=== PATIENT | female | born 1935 | race Caucasian/White ===

== ENCOUNTER 2016-07-12 21:27 | Inpatient (IN) | payer MEDICARE, OTHER ==
--- NOTE | 2016-07-12 21:18 | EDM.PDOC ---
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 she states she did not have chest pain , dyspnea or diaphoresis just felt weak. She states she was able to sit down and rest and associated the feeling with the heat and minimal po intake. She staes she came home from work and called her daughter to come and do the chores as she felt like she was too weak to do this. Daughter came over and indicated patient look guidry and insisted she go to ER for evaluation. She presents ambulatory for evaluation and treatment. Onset: Today Onset Date: 07/12/16 Onset Time: 16:30 Duration: Hour(s): (5), Recurring, Waxing/Waning Location: Reports: Generalized Quality: Reports: Other (Weakness fatigue-) Severity: Mild Improves with: Reports: Rest Worsens with: Reports: Movement Context: Reports: Activity, Exercise. Denies: Sick Contact, Trauma Associated Symptoms: Reports: Cough, cough w sputum, Weakness. Denies: Confusion, Chest Pain, Diaphoresis, Fever/Chills, Headaches, Loss of Appetite, Malaise, Nausea/Vomiting, Rash, Seizure, Shortness of Breath, Syncope Treatments DIRECTOR EHS: Reports: Other (see below) (rest) - Related Data Allergies Allergy/AdvReac Type Severity Reaction Status Date / Time No Known Allergies Allergy Verified 05/15/16 08:26 Home Meds: Home Meds Aspirin [Adult Low Dose Aspirin EC] 81 mg PO DAILY 05/15/16 [History] Denosumab [Prolia] 60 mg SUBCUT Q180D 05/15/16 [History] Hydrochlorothiazide/Lisinopril [Lisinopril/HCTZ 20-12.5 MG] 1 tab PO DAILY 05/15 [History] Multivitamin [Daily Multiple Vitamin] 1 tab PO DAILY 05/15/16 [History] Past Medical History HEENT History: Reports: Cataract, Impaired Vision Cardiovascular History: Reports: High Cholesterol, Hypertension Respiratory History: Reports: None Gastrointestinal History: Reports: None Genitourinary History: Reports: None : 8 Para: 7 LMP (Approximate): Other (See Below) (Gaguxtieidet-MICY-2 spontaneous miscarriage) Musculoskeletal History: Reports: None Neurological History: Reports: None Psychiatric History: Reports: None Endocrine/Metabolic History: Reports: None Hematologic History: Reports: None Immunologic History: Reports: None Oncologic (Cancer) History: Reports: None Dermatologic History: Reports: None - Infectious Disease History Infectious Disease History: Reports: None - Past Surgical History Head Surgeries/Procedures: Reports: None HEENT Surgical History: Reports: Cataract Surgery Cardiovascular Surgical History: Reports: None Respiratory Surgical History: Reports: None GI Surgical History: Reports: None Female Surgical History: Reports: Hysterectomy Male Surgical History: Reports: None Endocrine Surgical History: Reports: None Neurological Surgical History: Reports: None Musculoskeletal Surgical History: Reports: Other (See Below) (Fractured femur with ORIF) Oncologic Surgical History: Reports: None Dermatological Surgical History: Reports: None - Past Imaging History Past Imaging History: Reports: None Social & Family History - Family History Family Medical History: Noncontributory HEENT: Reports: None Cardiac: Reports: CAD Respiratory: Reports: None GI: Reports: None : Reports: None OBGYN: Reports: None Musculoskeletal: Reports: Osteoporosis Neurological: Reports: None Psychiatric: Reports: None Endocrine/Metabolic: Reports: None Hematologic: Reports: None Immunologic: Reports: None Dermatologic: Reports: None Oncologic: Reports: None - Tobacco Use Smoking Status *Q: Never Smoker Tobacco Use Within Last Twelve Months: No Second Hand Smoke Exposure: Yes - Tobacco Core Measures Tobacco Use/Smoking Within Last 30 Days: No - Caffeine Use Caffeine Use: Reports: Coffee (am only) - Alcohol Use Alcohol Use History: No - Recreational Drug Use Recreational Drug Use: No Drug Use in Last 12 Months: No - Sexual History Sexual History: Reports: None - Living Situation & Occupation Living situation: Reports: 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 Denies: Malaise, Night Sweats, Diaphoresis HEENT: Reports: No Symptoms Respiratory: Reports: Cough, Other (Since initiation of MARIANA for HTN) Cardiovascular: Reports: Blood Pressure Problem, Lightheadedness. Denies: Chest Pain, Claudication, Dyspnea on Exertion, Edema Endocrine: Reports: No Symptoms GI/Abdominal: Reports: No Symptoms : Reports: No Symptoms Musculoskeletal: Reports: No Symptoms Skin: Reports: No Symptoms, Pallor Neurological: Denies: Confusion, Headache, Tremors Psychiatric: Reports: No Symptoms Hematologic/Lymphatic: Reports: No Symptoms Immunologic: Reports: No Symptoms ED EXAM, GENERAL - Physical Exam Exam: See Below Exam Limited By: No Limitations General Appearance: Alert, WD/WN, No Apparent Distress, Other (Appears younger than stated age) Eye Exam: Bilateral Eye: EOMI (WNL), Normal Fundi, Normal Inspection, PERRL, Vision Changes (Wears glasses) Ears: Normal External Exam, Normal Canal, Hearing Grossly Normal, Normal TMs Ear Exam: Bilateral Ear: Auricle Normal, Canal Normal, TM normal Nose: Normal Inspection, Normal Mucosa, No Blood, Nasal Tenderness Throat/Mouth: Normal Inspection, Normal Lips, Normal Teeth, Normal Gums, Normal Oropharynx, Normal Voice, No Airway Compromise Head: Atraumatic, Normocephalic Neck: Normal Inspection, Supple, Non-Tender, Full Range of Motion. No: Carotid Bruit, Thyromegaly Respiratory/Chest: No Respiratory Distress, Lungs Clear, Normal Breath Sounds, No Accessory Muscle Use, Chest Non-Tender Cardiovascular: Normal Peripheral Pulses, Regular Rate, Rhythm, No Edema, No Gallop, No JVD, No Murmur, No Rub Peripheral Pulses: 2+: Carotid (L), Carotid (R), Brachial (L), Brachial (R), Radial (L), Radial (R), Dorsalis Pedis (L), Dorsalis Pedis (R) GI/Abdominal: Normal Bowel Sounds, Soft, Non-Tender, No Distention (Female) Exam: Deferred Rectal (Female) Exam: Deferred Back Exam: Normal Inspection, Full Range of Motion Extremities: Normal Inspection, Normal Range of Motion, Non-Tender, No Pedal Edema, Normal Capillary Refill Neurological: Alert, Oriented, CN II-XII Intact, Normal Cognition, Normal Gait, Normal Reflexes, No Motor/Sensory Deficits Psychiatric: Normal Affect, Normal Mood Skin Exam: Warm, Dry, Intact, Normal Color, No Rash Lymphatic: No Adenopathy ED CARDIOLOGY PROCEDURES - Endotracheal Intubation Pre-oxygenation: assisted with BVM, 100% FiO2 Confirmed By: CO2 indicator, bilateral breath sounds EKG INTERPRETATION EKG Date: 07/12/16 Time: 21:45 Rhythm: a-fib Belva: normal P-wave: present QRS: normal ST-T: normal QT: normal Comparison: other: (Spontaneous conversion to NSR 20 minutes after arrival to ED and post ECG) Course - Vital Signs Last Recorded V/S: Last Vital Signs Temp 35.2 C L 07/12/16 21:30 Pulse 103 H 07/12/16 21:54 Resp 16 07/12/16 21:54 BP 107/78 07/12/16 21:54 Pulse Ox 96 07/12/16 21:54 - Orders/Labs/Meds Orders: Active Orders 24 hr Category Date Time Status Chest 2V [CR] Stat Exams 07/12/16 21:13 Taken Medication Orders Carvedilol (Coreg) 3.125 mg PO BIDM [facility] Enoxaparin Sodium (Lovenox) 80 mg SUBCUT Q12H [facility] Multivitamins/Minerals/Vitamin C (Tab-A-Allyssa) 1 tab PO DAILY [facility] Warfarin Sodium (Coumadin) 5 mg PO DAILY@1200 [facility] Labs: Laboratory Tests 07/12/16 07/12/16 07/12/16 Range/Units 21:13 21:13 21:13 WBC 8.6 (5.0-10.0) 10^3/uL RBC 4.62 (4.00-5.50) 10^6/uL Hgb 14.1 (12.0-16.0) g/dL Hct 41.4 (37.0-47.0) % MCV 89.6 (82.0-94.0) fL MCH 30.5 (27.0-32.0) pg MCHC 34.1 (33.0-38.0) g/dL RDW Coeff of Eugenia 13.3 (11.0-15.0) % Plt Count 288 (150-400) 10^3/uL Neut % (Auto) 55.7 (35-85) % Lymph % (Auto) 33.1 (10-55) % [place] % (Auto) 9.3 (0-16) % Eos % (Auto) 1.6 (0-5) % Baso % (Auto) 0.3 (0-3) % Neut # (Auto) 4.80 (1.80-7.00) 10^3/uL Lymph # (Auto) 2.85 (1.00-4.80) 10^3/uL [place] # (Auto) 0.80 (0.00-0.80) 10^3/uL Eos # (Auto) 0.14 (0.00-0.45) 10^3/uL Baso # (Auto) 0.03 10^3/uL PT 10.8 (9.7-12.3) SEC INR 1.00 (0.92-1.18) APTT 28.0 (20.0-45.0) SEC Sodium 141 (136-145) mEq/L Potassium 4.4 (3.5-5.0) mEq/L Chloride 104 (98-106) mEq/L Carbon Dioxide 24 (21-32) mmol/L BUN 21 H (7-18) mg/dL Creatinine 1.1 H (0.6-1.0) mg/dL Est Cr Clr Drug Dosing 30.27 mL/min Estimated GFR (MDRD) 48 L (>=60) mL/min Glucose 116 H D (75-99) mg/dL Calcium 9.3 (8.4-10.1) mg/dL Magnesium 2.2 (1.8-2.4) mg/dL Lactate Dehydrogenase 225 H (100-190) U/L Creatine Kinase 195 (21-215) U/L Troponin I < 0.017 (0.00-0.06) ng/mL Meds: Medications Generic Name Dose Route Start Last Admin Trade Name Freq PRN Reason Stop Dose Admin Carvedilol 3.125 mg 07/12/16 22:45 Coreg PO BIDM [facility] Enoxaparin Sodium 80 mg 07/12/16 22:45 Lovenox SUBCUT Q12H [facility] Multivitamins/Minerals/Vitamin C 1 tab 07/13/16 08:00 Tab-A-Allyssa PO DAILY [facility] Warfarin Sodium 5 mg 07/13/16 12:00 Coumadin PO DAILY@1200 [facility] Discontinued Medications Generic Name Dose Route Start Last Admin Trade Name Freq PRN Reason Stop Dose Admin Aspirin 324 mg 07/12/16 21:14 07/12/16 21:41 Aspirin PO 07/12/16 21:15 243 mg ONETIME ONE Administration - Radiology Interpretation Free Text/Narrative:: 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 Departure - Departure Time of Disposition: 22:00 Disposition: Admitted As Inpatient 65 Condition: good Clinical Impression: Atrial fibrillation, Cough due to MARIANA inhibitor, HTN (hypertension) MLP Sign Off - Signature Requirements MLP Sign Off: No - Problem List & Annotations (1) Atrial fibrillation SNOMED Code(s): 84381136 Code(s): I48.91 - UNSPECIFIED ATRIAL FIBRILLATION Status: Acute Current Visit: Yes (2) HTN (hypertension) SNOMED Code(s): 33286508 Code(s): I10 - ESSENTIAL (PRIMARY) HYPERTENSION Status: Acute Current Visit: Yes (3) Cough due to MARIANA inhibitor SNOMED Code(s): 210709691 Code(s): R05 - COUGH; T46.4X5A - ADVERSE EFFECT OF [id number] INHIBITORS, INIT Status: Acute Current Visit: Yes - Problem List Review Problem List Initiated/Reviewed/Updated: Yes - My Orders Last 24 Hours: My Active Orders 07/12/16 21:13 Chest 2V [CR] Stat - Assessment/Plan Admission H&P: Please use this note as an admission H&P Last 24 Hours: My Active Orders 07/12/16 21:13 Chest 2V [CR] Stat Assessment:: New onset atrial fibrillation with spontaneous conversion to NSR in ER. HTN Cough secondary to MARIANA Osteoporosis Plan: Admit to hospital for observation. Discontinue MARIANA Coreg 3.25 mg BID Lovenox 1 mg/kg subcutaneous every 12 hours. Coumadin 10 mg daily PT INR daily Referral to Cardiology for consultation.
[~2016-07-12 21:27] MED LIST: Aspirin 81 MG Tab.Chew PO ONE
[2016-07-12 21:47] LABS: CHLORIDE,CL 104 mEq/L (98-106); SODIUM,NA 141 mEq/L (136-145)
[2016-07-12] MEDS: Carvedilol 3.125 MG Tab PO SCH (23:23)
[2016-07-12] MEDS: Enoxaparin 80 MG/0.8 ML Syringe SUBCUT SCH (23:24)
[2016-07-13] MEDS: Warfarin 5 MG Tab PO SCH ×2 (01:00→12:10)
[2016-07-13] MEDS: Multivitamin Tab PO SCH (08:30)
[2016-07-13] MEDS ORDERED: Pneumococcal Polyvalent-23 Vaccine 0.5 ML SDV IM ONE (08:41)
--- NOTE | 2016-07-13 09:40 | PCM.PN ---
[id number] for new onset Atrial Fibrillation. 07/13/2016- Functional Status: Reports: tolerating diet, ambulating, urinating. Denies: new symptoms Pain Score: 0 - Review of Systems General: Reports: No Symptoms, Fatigue. Denies: Weakness HEENT: Reports: no symptoms Pulmonary: Reports: no symptoms. Denies: shortness of breath, pleuritic chest pain Cardiovascular: Denies: Chest Pain, Palpitations, Dyspnea on Exertion, Orthopnea , PND, Edema, Lightheadedness Gastrointestinal: Reports: No symptoms. Denies: Abdominal pain Genitourinary: Reports: urgency, other (Waxing and waning past 3 weeks). Denies : dysuria, burning, pain, flank pain Musculoskeletal: Reports: no symptoms Skin: Reports: no symptoms Neurological: Reports: No Symptoms Psychiatric: Reports: no symptoms - Patient Data Vitals - most recent: Last Vital Signs Temp 36.3 C 07/13/16 07:43 Pulse 56 L 07/13/16 07:43 Resp 16 07/13/16 07:43 BP 109/67 07/13/16 07:43 Pulse Ox 95 07/13/16 07:43 Weight - most recent: 75.886 kg I&O - last 24 hours: Intake & Output 07/12/16 07/13/16 07/13/16 22:59 06:59 14:59 Intake Total 380 Balance 380 Lab Results last 24 hrs: Laboratory Results - last 24 hr 07/13/16 07/13/16 Range/Units 05:18 08:24 PT 11.2 (9.7-12.3) SEC INR 1.04 (0.92-1.18) Urine Color Yellow (YELLOW) Urine Appearance Clear (CLEAR) Urine pH 5.5 (4.5-8.0) Ur Specific [place] 1.012 (1.003-1.020) Urine Protein Negative (NEGATIVE) mg/dL Urine Glucose (UA) Negative (NEGATIVE) mg/dL Urine Ketones Negative (NEGATIVE) mg/dL Urine Occult Blood Negative (NEGATIVE) Urine Nitrite Positive H (NEGATIVE) Urine Bilirubin Negative (NEGATIVE) Urine Urobilinogen 0.2 (0.2-1.0) EU/dL Ur Leukocyte Esterase Small H (NEGATIVE) Urine RBC Not seen (0-5) /HPF Urine WBC 5-10 H (0-5) /HPF Urine Bacteria Many H (NOT SEEN) /HPF Med Orders - Current: Current Medications Carvedilol (Coreg) 3.125 mg PO BIDM [facility] Last Admin: 07/12/16 23:23 Dose: 3.125 mg Enoxaparin Sodium (Lovenox) 80 mg SUBCUT Q12H [facility] Last Admin: 07/12/16 23:24 Dose: 80 mg Multivitamins/Minerals/Vitamin C (Tab-A-Allyssa) 1 tab PO DAILY [facility] Last Admin: 07/13/16 08:30 Dose: 1 tab Trimethoprim/Sulfamethoxazole (Septra Ds) 1 tab PO BID [facility] Warfarin Sodium (Coumadin) 5 mg PO DAILY@1200 [facility] Last Admin: 07/13/16 01:00 Dose: 5 mg Discontinued Medications Aspirin (Aspirin) 324 mg PO ONETIME ONE Stop: 07/12/16 21:15 Last Admin: 07/12/16 21:41 Dose: 243 mg Pneumococcal Polyvalent Vaccine (Pneumovax 23) 0.5 ml IM .ONCE ONE Stop: 07/13/16 08:42 Warfarin Sodium (Coumadin) 5 mg PO DAILY@1200 [facility] - Exam Quality Assessment: DVT prophylaxis General: alert, oriented, cooperative, no acute distress HEENT: Pupils equal, Pupils reactive, Mucous membr. moist/pink Neck: supple, trachea midline, no JVD, no thyromegaly Lungs: Clear to auscultation, Normal respiratory effort Cardiovascular: Regular Rate, Regular Rhythm, Other (Telemetry Continues) Abdomen: bowel sounds present, soft, no tenderness, no distension (Female) Exam: Deferred Back Exam: Normal Inspection, Full Range of Motion Extremities: no edema, normal pulses, no tenderness/swelling, no calf tenderness Peripheral Pulses: 2+: Carotid (L), Carotid (R), Brachial (L), Brachial (R), Radial (L), Radial (R), Dorsalis Pedis (L), Dorsalis Pedis (R) Skin: warm, dry, intact, cool Wound/Incisions: dressing dry and intact (IV hep lock right dorsal hand) Neurological: no new focal deficit, normal gait, normal speech, normal tone, strength equal bilateral, reflexes equal bilateral, sensation intact, cranial nerves intact Psy/Mental Status: alert, normal affect, normal mood EKG INTERPRETATION Rhythm: NSR [place]: normal P-wave: present QRS: normal ST-T: normal QT: normal (Telemetry continues) Comparison: change from previous EKG (Normal Sinus rate 74) - Problem List & Annotations (1) Atrial fibrillation SNOMED Code(s): 82261764 Code(s): I48.91 - UNSPECIFIED ATRIAL FIBRILLATION Status: Acute Current Visit: Yes (2) HTN (hypertension) SNOMED Code(s): 14520393 Code(s): I10 - ESSENTIAL (PRIMARY) HYPERTENSION Status: Acute Current Visit: Yes (3) Cough due to MARIANA inhibitor SNOMED Code(s): 154522448 Code(s): R05 - COUGH; T46.4X5A - ADVERSE EFFECT OF [id number] INHIBITORS, INIT Status: Acute Current Visit: Yes - Problem List Review Problem List Initiated/Reviewed/Updated: Yes - My Orders Last 24 Hours: My Active Orders 07/12/16 22:20 Cardiac Monitoring [RC] 0800,199907/12/16 22:39 Patient Status [ADT] Routine Oxygen Therapy [RC] .PRN Vital Signs [RC] 0000,0400,0800,1200,1600,1999 Resuscitation Status Routine 07/12/16 22:45 Carvedilol [Coreg] 3.125 mg PO BIDM Enoxaparin [Lovenox] 80 mg SUBCUT Q12H 07/12/16 23:33 Warfarin [Coumadin] 5 mg PO DAILY@1200 07/13/16 08:00 Multivitamins [Tab-A-Allyssa] 1 tab PO DAILY 07/13/16 08:07 CULTURE URINE [RM] Routine 07/13/16 09:45 Sulfamethoxazole/Trimethoprim [Septra DS] 1 tab PO BID 07/13/16 Breakfast Regular Diet [DIET] - Assessment Assessment:: New Onset Atrial Fibrillation Anticoagulation Therapy UTI HTN - Plan Plan:: Continue current treatment plan. Close monitoring. Add Septra DS BID for UTI C and S ua.
[2016-07-13] MEDS: Carvedilol 3.125 MG Tab PO SCH ×2 (09:42→17:45)
[2016-07-13] MEDS: Sulfamethoxazole/Trimethoprim 800-160 MG Tab PO SCH ×2 (10:19→19:34)
[2016-07-13] MEDS: Enoxaparin 80 MG/0.8 ML Syringe SUBCUT SCH ×2 (10:19→22:13)
[2016-07-13] MEDS ORDERED: Warfarin 5 MG Tab PO SCH (12:00)
[2016-07-14] MEDS: Multivitamin Tab PO SCH (08:20)
[2016-07-14] MEDS: Sulfamethoxazole/Trimethoprim 800-160 MG Tab PO SCH (08:21)
[2016-07-14] MEDS: Carvedilol 3.125 MG Tab PO SCH ×2 (08:21→16:50)
[2016-07-14] MEDS: Warfarin 5 MG Tab PO SCH (11:12)
[2016-07-14] MEDS: Enoxaparin 80 MG/0.8 ML Syringe SUBCUT SCH ×2 (11:12→21:51)
[2016-07-14] MEDS: cefTRIAXone 1 GM Vial IVPUSH SCH (14:00)
[2016-07-15] MEDS: Multivitamin Tab PO SCH (07:42)
[2016-07-15] MEDS: Carvedilol 3.125 MG Tab PO SCH (07:42)
--- NOTE | 2016-07-15 08:07 | PN ---
DATE: 07/14/2016 S: Mrs. Kapadia is seen for followup. She was admitted with new onset atrial fibrillation. She converted quite quickly in the emergency room. She has been on low-dose Coreg and anticoagulated with Lovenox, and Coumadin has been started. She also has UTI. She feels fine. She denies any cardiopulmonary complaints. O: GENERAL: She is pleasant, alert, and cooperative. VITAL SIGNS: BP 135/92, heart rate in the 60s and sinus. HEENT: Grossly benign. NECK: Veins are nondistended. LUNGS: Sounds appear clear without any signs of failure. CARDIAC: Tones are regular without murmur, gallop, or rub. ABDOMEN: Soft. She has no peripheral edema. ASSESSMENT: PAROXYSMAL ATRIAL FIBRILLATION. P: We will get an echo ordered. I am going to stop the Bactrim as its interaction with Coumadin is quite high. I will put her on Rocephin while she is here. Hopefully home tomorrow. We will get a OPAL score calculated on her and ultimately, cardiology followup in the near future. OZZIE/CHUY /[id number]
[2016-07-15] MEDS: Enoxaparin 80 MG/0.8 ML Syringe SUBCUT SCH (10:56)
[2016-07-15] MEDS: cefTRIAXone 1 GM Vial IVPUSH SCH (11:00)
[2016-07-15] MEDS: Warfarin 5 MG Tab PO SCH (12:03)
[2016-07-15 13:09] VITALS: BP 134/85
--- NOTE | 2016-07-16 11:40 | DISCH ---
ADMISSION DIAGNOSIS: New onset atrial fibrillation with rapid ventricular response. DISCHARGE DIAGNOSIS: 1. RAPID ATRIAL FIBRILLATION CONVERTED. 2. URINARY TRACT INFECTION. HISTORY: The patient is a very healthy 80-year-old female treated only for a history of hypertension. She came in with palpitations, was found to be in AFib, was slow down in the emergency room and actually converted by the time she was admitted. Charlee Alford, nurse-practitioner did start her on anticoagulation with Lovenox and started oral anticoagulation as well. She has put on a beta ian. HOSPITAL COURSE: The patient did well while here. She never had any vital sign irregularities. She has been on telemetry the whole time. Has had no chest pain or shortness of breath, or returned to AFib. Started on low dose of Coreg and she is tolerating that well. She has been initiated on Coumadin, her INR still slightly subtherapeutic with INR now of 1.55. She did have a UTI on admit and grew out E. coli. She will go home on Ceftin for that. The patient's OPAL score puts her at approximately a 5% risk per year, which is moderate to high and I did explain that to her. She is agreeable to stay on Coumadin at least until we get her outpatient followup with Cardiology. We will not send her home on Lovenox. Her INR is at 1.55; today we will recheck again this and I will see her in the clinic as an outpatient next week. For now, she will be taken out of Coreg and I am going to put her on once a day Toprol 50 mg a day. With her Coumadin only other change for her admit will be to discontinuation of her lisinopril/hydrochlorothiazide for blood pressure control. COMPLICATIONS: During her stay were none. CONSULTATIONS: None. PROCEDURES: Echocardiogram, results pending. DISPOSITION: Discharged home. OZZIE/CHUY /[id number]
== END 2016-07-15 15:45 | disposition home or self-care (01) | DRG 309 ==
LOC: CC.ED 21:27 → CC.MS 21:57 → UNDOADMIN 21:57 → CC.MS 22:39
PROVIDERS: ADMIT Nurse Practitioner; ATTEND Family Medicine
DX: I48.91 Unspecified atrial fibrillation (principal); I48.0 Paroxysmal atrial fibrillation; N39.0 Urinary tract infection, site not specified; R05 Cough; T46.4X5A Adverse effect of angiotensin-converting-enzyme inhibitors, initial encounter; I10 Essential (primary) hypertension; E78.00 Pure hypercholesterolemia, unspecified; Z79.82 Long term (current) use of aspirin; Z79.899 Other long term (current) drug therapy; M81.0 Age-related osteoporosis without current pathological fracture; Z23 Encounter for immunization
CPT/HCPCS: 36415; 71020; 80048; 82550; 83615; 83735; 84484; 85025; 85610; 85730; 93005; 99285; A9270; 81001; 87086; 87088; 87186; 90732; 93010; 93306; G0009; J0696; J1650

== ENCOUNTER 2016-12-21 18:44 | Observation (INO) | payer MEDICARE, OTHER ==
[2016-12-21] MEDS ORDERED: Sodium Chloride 0.9% 10 ML Syringe FLUSH PRN (19:08)
--- NOTE | 2016-12-21 19:15 | EDM.PDOC ---
ED HPI GENERAL MEDICAL PROBLEM - General Chief Complaint: Chest Pain Stated Complaint: "Having chest heaviness" Time Seen by Provider: 12/21/16 18:45 Source of Information: Reports: Patient, Family, Old Records, RN - History of Present Illness INITIAL COMMENTS - FREE TEXT/NARRATIVE: Patient was at work when she started feeling "not quite right, its hard to describe". She describes some mild chest heaviness will diaphoresis but no nausea. She developed a sensation of heart pounding and palpitations. Was brought in to ER by family. States this feels similar to when she developed new onset a-fib last summer. It spontaneously converted at that time. She is on coumadin and has seen cardiology. Onset: Today Onset Date: 12/21/16 Onset Time: 17:00 Duration: Minutes:, Waxing/Waning Location: Reports: Chest Quality: Reports: Dull, Pressure Severity: Mild Improves with: Reports: None Worsens with: Reports: None Associated Symptoms: Reports: Diaphoresis, Other (dizziness with movement). Denies: Chest Pain, Cough, Fever/Chills, Headaches, Loss of Appetite, Malaise, Nausea/Vomiting, Shortness of Breath - Related Data Allergies Allergy/AdvReac Type Severity Reaction Status Date / Time No Known Allergies Allergy Verified 12/21/16 19:04 Home Meds: Home Meds Denosumab [Prolia] 60 mg SUBCUT Q180D 05/15/16 [History] Multivitamin [Daily Multiple Vitamin] 1 tab PO DAILY 05/15/16 [History] Metoprolol Succinate [Toprol XL] 50 mg PO DAILY #30 tab.er 07/15/16 [Rx] Warfarin [Coumadin] 5 mg PO ASDIRECTED 12/21/16 [History] Warfarin [Coumadin] 7.5 mg PO ASDIRECTED 12/21/16 [History] Past Medical History HEENT History: Reports: Cataract, 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, 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) Cardiovascular History: Reports: Afib, Blood Clots/VTE/DVT (in remote past had DVT), High Cholesterol, Hypertension, Other (See Below) (on coumadin for PAF) Respiratory History: Reports: None Gastrointestinal History: Reports: None Genitourinary History: Reports: None Musculoskeletal History: Reports: None Neurological History: Reports: None Psychiatric History: Reports: None Endocrine/Metabolic History: Reports: None Hematologic History: Reports: None Immunologic History: Reports: None Oncologic (Cancer) History: Reports: None Dermatologic History: Reports: None - Infectious Disease History Infectious Disease History: Reports: None - Past Surgical History Head Surgeries/Procedures: Reports: None HEENT Surgical History: Reports: Cataract Surgery Cardiovascular Surgical History: Reports: None Respiratory Surgical History: Reports: None GI Surgical History: Reports: None Female Surgical History: Reports: Hysterectomy Male Surgical History: Reports: None Endocrine Surgical History: Reports: None Neurological Surgical History: Reports: None Musculoskeletal Surgical History: Reports: Other (See Below) (Fractured femur with ORIF) Oncologic Surgical History: Reports: None Dermatological Surgical History: Reports: None - Past Imaging History Past Imaging History: Reports: None Social & Family History - Family History Family Medical History: Noncontributory HEENT: Reports: None Cardiac: Reports: CAD Respiratory: Reports: None GI: Reports: None : Reports: None OBGYN: Reports: None Musculoskeletal: Reports: Osteoporosis Neurological: Reports: None Psychiatric: Reports: None Endocrine/Metabolic: Reports: None Hematologic: Reports: None Immunologic: Reports: None Dermatologic: Reports: None Oncologic: Reports: None Other Oncologic Family History: Mother, sister both had breast ca. 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) ED ROS GENERAL - Review of Systems Review Of Systems: See Below ED EXAM, GENERAL - Physical Exam Exam: See Below Exam Limited By: No Limitations General Appearance: Alert, WD/WN, No Apparent Distress Eye Exam: Right Eye: PERRL (left pupil partially covered by old scar tissue), Bilateral Eye: Abnormal Pupil (left), EOMI, Vision Changes (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 and left eyelid droop) Ears: Normal External Exam, Normal Canal, Hearing Grossly Normal, Normal TMs Ear Exam: Bilateral Ear: Auricle Normal, Canal Normal, TM normal Nose: Normal Inspection, Normal Mucosa, No Blood Throat/Mouth: Normal Inspection, Normal Lips, Normal Teeth, Normal Gums, Normal Oropharynx, Normal Voice, No Airway Compromise Head: Atraumatic, Normocephalic Neck: Normal Inspection, Supple, Non-Tender, Full Range of Motion Respiratory/Chest: No Respiratory Distress, Lungs Clear, Normal Breath Sounds, No Accessory Muscle Use, Chest Non-Tender Cardiovascular: No JVD, No Murmur, No Rub, Irregularly Irregular, Other (a-fib with RVR on the monitor and EKG, rate 120s to 130s, 1= bilat lower ext edema) Peripheral Pulses: 1+: Dorsalis Pedis (L), Dorsalis Pedis (R), 2+: Radial (L), Radial (R) GI/Abdominal: Normal Bowel Sounds, Soft, Non-Tender, No Organomegaly, No Distention, No Abnormal Bruit, No Mass (Female) Exam: Deferred Rectal (Female) Exam: Deferred Back Exam: Normal Inspection, Full Range of Motion, NT Extremities: Normal Inspection, Normal Range of Motion, Non-Tender, Normal Capillary Refill, Pedal Edema Neurological: Alert, Oriented, CN II-XII Intact, Normal Cognition, Normal Gait, Normal Reflexes, No Motor/Sensory Deficits Psychiatric: Normal Affect, Normal Mood Skin Exam: Warm, Dry, Intact, Normal Color, No Rash Lymphatic: No Adenopathy EKG INTERPRETATION EKG Date: 12/21/16 Time: 19:03 Rhythm: A-Fib Rate (Beats/Min): 122 (afib with RVR) P-Wave: Absent QRS: Normal ST-T: Other (non specific changes) QT: Normal Comparison: No Change (afb with RVR) Course - Vital Signs Last Recorded V/S: Last Vital Signs Temp 34.6 C L 12/21/16 19:00 Pulse 117 H 12/21/16 19:00 Resp 24 H 12/21/16 19:00 BP 93/68 12/21/16 19:00 Pulse Ox 96 12/21/16 19:00 - Orders/Labs/Meds Orders: Active Orders 24 hr Category Date Time Status Patient Status Manage Transfer [TRANSFER] Routine ADT 12/21/16 19:51 Ordered Chest 2V [CR] Stat Exams 12/21/16 19:08 Taken Sodium Chloride 0.9% [Saline Flush] Med 12/21/16 19:08 Active 10 ml FLUSH ASDIRECTED PRN Saline Lock Insert [OM.PC] Routine Oth 12/21/16 19:08 Ordered Medication Orders Sodium Chloride (Saline Flush) 10 ml FLUSH ASDIRECTED PRN PRN Reason: Keep Vein Open Labs: Laboratory Tests 12/21/16 12/21/16 12/21/16 Range/Units 18:58 18:58 18:58 WBC 5.2 (5.0-10.0) 10^3/uL RBC 4.56 (4.00-5.50) 10^6/uL Hgb 13.7 (12.0-16.0) g/dL Hct 40.8 (37.0-47.0) % MCV 89.5 (82.0-94.0) fL MCH 30.0 (27.0-32.0) pg MCHC 33.6 (33.0-38.0) g/dL RDW Coeff of Eugenia 13.9 (11.0-15.0) % Plt Count 206 (150-400) 10^3/uL Neut % (Auto) 55.1 (35-85) % Lymph % (Auto) 33.7 (10-55) % [place] % (Auto) 8.9 (0-16) % Eos % (Auto) 1.9 (0-5) % Baso % (Auto) 0.4 (0-3) % Neut # (Auto) 2.85 (1.80-7.00) 10^3/uL Lymph # (Auto) 1.74 (1.00-4.80) 10^3/uL [place] # (Auto) 0.46 (0.00-0.80) 10^3/uL Eos # (Auto) 0.10 (0.00-0.45) 10^3/uL Baso # (Auto) 0.02 10^3/uL PT 18.6 H (9.7-12.3) SEC INR 1.69 H (0.92-1.18) Sodium 138 (136-145) mEq/L Potassium 3.7 (3.5-5.0) mEq/L Chloride 104 (98-106) mEq/L Carbon Dioxide 25 (21-32) mmol/L BUN 18 (7-18) mg/dL Creatinine 0.9 (0.6-1.0) mg/dL Est Cr Clr Drug Dosing 36.37 mL/min Estimated GFR (MDRD) 60 (>=60) mL/min Glucose 143 H D (75-99) mg/dL Calcium 9.0 (8.4-10.1) mg/dL Magnesium 2.0 (1.8-2.4) mg/dL Total Bilirubin 0.4 (0.0-1.0) mg/dL AST 21 (15-37) U/L ALT 29 (12-78) U/L Alkaline Phosphatase 75 (46-116) U/L Lactate Dehydrogenase 242 H (100-190) U/L Creatine Kinase 264 H (21-215) U/L Troponin I < 0.017 (0.00-0.06) ng/mL Total Protein 7.3 (6.4-8.2) g/dL Albumin 3.7 (3.4-5.0) g/dL Meds: Medications Generic Name Dose Route Start Last Admin Trade Name Freq PRN Reason Stop Dose Admin Sodium Chloride 10 ml 12/21/16 19:08 Saline Flush FLUSH ASDIRECTED PRN Keep Vein Open Discontinued Medications Generic Name Dose Route Start Last Admin Trade Name Freq PRN Reason Stop Dose Admin Metoprolol Tartrate 5 mg 12/21/16 19:21 12/21/16 19:26 Lopressor IVPUSH 12/21/16 19:22 Not Given ONETIME ONE - Radiology Interpretation Free Text/Narrative:: CXR shows no failure or infiltrate with cardiology over read pending. - Re-Assessments/Exams Free Text/Narrative Re-Assessment/Exam: 12/21/16 19:46 Patient evaluated and labs and diagnostics done. She spontaneously converted to NSR wth rate in the 80-90 range about 1930. Creatine kinase and LDH are elevated. Troponin was normal. INR is subtheraputc. Discussed case with patient and family and they are agreeable to overnight observation admission to evaluate for HI with serial enzymes and EKGs, telemetry and increase of coumadin dose. Departure - Departure Time of Disposition: 19:45 Disposition: Refer to Observation Condition: Good Clinical Impression: Atrial fib/flutter, transient, Elevation of cardiac enzymes Referrals: Ritesh Reyes MD [Primary Care Provider] - Forms: ED Department Discharge - Problem List & Annotations (1) Atrial fib/flutter, transient SNOMED Code(s): 618488569 Code(s): ACC4138 - Status: Acute Priority: High Current Visit: Yes Onset Date: ~12/21/16 (2) Elevation of cardiac enzymes SNOMED Code(s): 808422096 Code(s): R74.8 - ABNORMAL LEVELS OF OTHER SERUM ENZYMES Status: Acute Priority: High Current Visit: Yes Onset Date: ~12/21/16 - Problem List Review Problem List Initiated/Reviewed/Updated: Yes - My Orders Last 24 Hours: My Active Orders 12/21/16 19:08 Chest 2V [CR] Stat Sodium Chloride 0.9% [Saline Flush] 10 ml FLUSH ASDIRECTED PRN Saline Lock Insert [OM.PC] Routine 12/21/16 19:51 Patient Status Manage Transfer [TRANSFER] Routine - Assessment/Plan Admission H&P: Please use this note as an admission H&P Last 24 Hours: My Active Orders 12/21/16 19:08 Chest 2V [CR] Stat Sodium Chloride 0.9% [Saline Flush] 10 ml FLUSH ASDIRECTED PRN Saline Lock Insert [OM.PC] Routine 12/21/16 19:51 Patient Status Manage Transfer [TRANSFER] Routine Assessment:: transient atrial fib with RVR elevated cardiac enzymes H/O PAF chronic coumadin anticoagulation which is subtheraputic Plan: Patient will be admitted observation for telemetry and serial enzymes and EKGs due to elevated cardiac enzymes. She will be given an increased dose of coumadin tonight. Labs will be rechecked in the AM and discharge when appropriate.
[2016-12-21] MEDS ORDERED: Metoprolol Tartrate 5 MG/5 ML SDV IVPUSH ONE (19:21)
[2016-12-21 19:25] LABS: CHLORIDE,CL 104 mEq/L (98-106); SODIUM,NA 138 mEq/L (136-145)
[2016-12-21] MEDS ORDERED: FLU Vacc QS 2017-18 (36mos UP)/PF 60 MCG/0.5 ML Syringe IM ONE (20:25)
[2016-12-21] MEDS ORDERED: Warfarin 2.5 MG Tab PO ONE (20:30)
[2016-12-22] MEDS ORDERED: [UNRECOGNIZED DRUG - OTHER] SCH (08:00)
[2016-12-22 11:54] VITALS: BP 125/82
[2016-12-22] MEDS ORDERED: Metoprolol Succinate 25 MG Tab.ER PO SCH (20:00)
[2016-12-22] MEDS ORDERED: Metoprolol Tartrate 50 MG Tab PO SCH ×2 (21:00)
--- NOTE | 2016-12-23 08:58 | PCM.DCSUM1 ---
Discharge Summary - Hospital Course Free Text/Narrative:: Patient presented to ER with complaints of chest pressure while at work. In ER , patient was in atrial fib with RVR. She did convert approximately 20 minutes after presentation and it relieved the chest pressure. 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 Up to this point, her INRs had been therapeutic but was low on presentation. Does not recall ever missing a dose or eating differently. She was admitted for cardiac monitoring and serial enzymes. - Discharge Data Discharge Date: 12/22/16 Discharge Disposition: Home, Self-Care 01 Condition: Good - Patient Summary/Data Complications: none Hospital Course: Cardiac enzymes remained negative. Remained in NSR. Increased the Coumadin dose to 7.5 mg 4 times per week, 5 mg 3x per week. Up and ambulating without difficulty. Remains pain free. No shortness of breath. - Patient Instructions Diet: Heart Healthy Diet Activity: As Tolerated - Discharge Plan Home Medications: Home Meds Denosumab [Prolia] 60 mg SUBCUT Q180D 05/15/16 [History] Multivitamin [Daily Multiple Vitamin] 1 tab PO DAILY 05/15/16 [History] Metoprolol Succinate [Toprol XL] 50 mg PO DAILY #30 tab.er 07/15/16 [Rx] Warfarin [Coumadin] 5 mg PO ASDIRECTED #30 12/22/16 [Rx] Warfarin [Coumadin] 7.5 mg PO ASDIRECTED #0 12/22/16 [Rx] Forms: ED Department Discharge Referrals: Ritesh Reyes MD [Primary Care Provider] - (Follow up in 2 weeks. INR prior to visit) - Discharge Summary/Plan Comment DC Time >30 min.: No Discharge Summary/Plan Comment: Patient discharged home. Will increase her Coumadin to 7.5 mg 4 times per week , 5 mg 3 times per week. Follow up in [address] Reyes. Return if increased pain or rhythm changes. - General Info Date of Service: 12/22/16 Admission Dx/Problem (Free Text: Paroxysmal Atrial Fib Functional Status: Reports: Pain Controlled, Tolerating Diet, Ambulating - Review of Systems General: Denies: Fever, Weakness, Fatigue HEENT: Reports: No Symptoms Pulmonary: Denies: Shortness of Breath Cardiovascular: Denies: Chest Pain, Edema, Lightheadedness Gastrointestinal: Reports: No Symptoms Genitourinary: Reports: No Symptoms Musculoskeletal: Reports: No Symptoms Skin: Reports: No Symptoms Neurological: Reports: No Symptoms - Patient Data Vitals - Most Recent: Last Vital Signs Temp 97.1 F 12/22/16 11:54 Pulse 92 12/22/16 11:54 Resp 16 12/22/16 11:54 BP 125/82 12/22/16 11:54 Pulse Ox 95 12/22/16 11:54 Weight - Most Recent: 171 lb 1.259 oz Med Orders - Current: Current Medications Discontinued Medications Influenza Virus Vaccine (Fluzone Quad [id number]) 60 mcg IM .ONCE ONE Stop: 12/21/16 20:26 Last Admin: 12/21/16 20:49 Dose: 60 mcg Metoprolol Succinate (Toprol Xl) 50 mg PO BEDTIME JOAQUIN Metoprolol Tartrate (Lopressor) 5 mg IVPUSH ONETIME ONE Stop: 12/21/16 19:22 Last Admin: 12/21/16 19:26 Dose: Not Given Metoprolol Tartrate (Lopressor) 50 mg PO Q12H JOAQUIN Daily Warfarin Order (--Ask Prescriber) 1 each .XX DAILY [facility] Sodium Chloride (Saline Flush) 10 ml FLUSH ASDIRECTED PRN PRN Reason: Keep Vein Open Warfarin Sodium (Coumadin) 2.5 mg PO ONETIME ONE Stop: 12/21/16 20:31 Last Admin: 12/21/16 20:49 Dose: 2.5 mg - Exam General: Reports: Alert, Oriented HEENT: Reports: Mucous Membr. Moist/[place] Neck: Reports: Supple Lungs: Reports: Clear to Auscultation, Normal Respiratory Effort Cardiovascular: Reports: Regular Rate, Regular Rhythm GI/Abdominal Exam: Normal Bowel Sounds, Soft, Non-Tender Skin: Reports: Warm, Dry Neurological: Reports: No New Focal Deficit *Q Meaningful Use (DIS) - VTE *Q VTE Criteria *Q: - Stroke *Q Stroke Criteria *Q: - AMI *Q AMI Criteria *Q:
== END 2016-12-22 13:15 | disposition home or self-care (01) ==
LOC: CC.ED 18:44 → CC.MS 20:05
PROVIDERS: ADMIT Nurse Practitioner Family; ATTEND Family Medicine
DX: I48.0 Paroxysmal atrial fibrillation (principal); R74.8 Abnormal levels of other serum enzymes; Z79.01 Long term (current) use of anticoagulants; Z79.899 Other long term (current) drug therapy; Z90.710 Acquired absence of both cervix and uterus; Z98.890 Other specified postprocedural states; Z23 Encounter for immunization
CPT/HCPCS: 36415; 71020; 80053; 82550; 83615; 83735; 84443; 84484; 85025; 85610; 93005; 93010; 99217; 99220; 99285; A9270; G0378; 90686; G0008

== ENCOUNTER 2017-08-04 11:40 | Emergency (ER) | payer MEDICARE, OTHER ==
[2017-08-04] MEDS ORDERED: fentaNYL 100 MCG/2 ML SDV ONE (11:52)
[2017-08-04] MEDS ORDERED: fentaNYL 100 MCG/2 ML SDV IM ONE (12:00)
[2017-08-04] MEDS ORDERED: Ketorolac 30 MG/ML SDV ONE (12:06)
[2017-08-04 12:08] LABS: CHLORIDE,CL 101 mEq/L (98-106); SODIUM,NA 135 mEq/L (136-145)
[2017-08-04] MEDS ORDERED: Ketorolac 30 MG/ML SDV IVPUSH ONE (12:21)
[2017-08-04 12:28] VITALS: BP 125/73
[2017-08-04] MEDS ORDERED: fentaNYL 100 MCG/2 ML SDV IVPUSH ONE (12:31)
--- NOTE | 2017-08-04 13:05 | EDM.PDOC ---
<IbanSriNalini D - Last Filed: 08/04/17 13:31> ED HPI GENERAL MEDICAL PROBLEM - General Chief Complaint: Chest Pain Stated Complaint: shoulder pain, ?cardiac Time Seen by Provider: 08/04/17 11:45 Source of Information: Reports: Patient, Family History Limitations: Reports: No Limitations - History of Present Illness INITIAL COMMENTS - FREE TEXT/NARRATIVE: Patient presents with right arm pain. States was sitting at breakfast when her shoulder started hurting. She does relate that she has a rotator cuff tear and has been working with that and has muscle pain but now it is much worse. She denies any trauma or recent falls. Relates pain is so intense, "worse than childbirth". Unable to move arm much due to pain. She relates she was driving and had to have her grandchild assist her due to the inability to move her arm. She has taken 3 tylenol without any relief of the pain. Has sensation in her fingers but notes the pain is all the way down her arm and up to her jaw. No chest pain. Has not had any shortness of breath. Known history of atrial fib. 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 Right Shoulder Pain Score (Numeric/FACES): 15 - Related Data Allergies Allergy/AdvReac Type Severity Reaction Status Date / Time No Known Allergies Allergy Verified 08/04/17 11:53 Home Meds: Home Meds Denosumab [Prolia] 60 mg SUBCUT Q180D 05/15/16 [History] Multivitamin [Daily Multiple Vitamin] 1 tab PO DAILY 05/15/16 [History] Metoprolol Succinate [Toprol XL] 50 mg PO DAILY #30 tab.er 07/15/16 [Rx] Warfarin [Coumadin] 5 mg PO MOTUTHSA 08/04/17 [History] Warfarin [Coumadin] 7.5 mg PO SUWEFR 08/04/17 [History] amLODIPine Besylate [Amlodipine Besylate] 5 mg PO DAILY 08/04/17 [History] Past Medical History HEENT History: Reports: Cataract, Impaired Vision Cardiovascular History: Reports: Afib, Blood Clots/VTE/DVT, High Cholesterol, Hypertension, Other (See Below) Respiratory History: Reports: None Gastrointestinal History: Reports: None Genitourinary History: Reports: None Musculoskeletal History: Reports: None Neurological History: Reports: None Psychiatric History: Reports: None Endocrine/Metabolic History: Reports: None Hematologic History: Reports: None Immunologic History: Reports: None Oncologic (Cancer) History: Reports: None Dermatologic History: Reports: None - Infectious Disease History Infectious Disease History: Reports: None - Past Surgical History Head Surgeries/Procedures: Reports: None HEENT Surgical History: Reports: Cataract Surgery Cardiovascular Surgical History: Reports: None Respiratory Surgical History: Reports: None GI Surgical History: Reports: None Female Surgical History: Reports: Hysterectomy Endocrine Surgical History: Reports: None Neurological Surgical History: Reports: None Musculoskeletal Surgical History: Reports: Other (See Below) Oncologic Surgical History: Reports: None Dermatological Surgical History: Reports: None - Past Imaging History Past Imaging History: Reports: None Social & Family History - Family History Family Medical History: Noncontributory HEENT: Reports: None Cardiac: Reports: CAD Respiratory: Reports: None GI: Reports: None : Reports: None OBGYN: Reports: None Musculoskeletal: Reports: Osteoporosis Neurological: Reports: None Psychiatric: Reports: None Endocrine/Metabolic: Reports: None Hematologic: Reports: None Immunologic: Reports: None Dermatologic: Reports: None Oncologic: Reports: None Other Oncologic Family History: Mother, sister both had breast ca. 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) Review of Systems - Review of Systems Review Of Systems: See Below Constitutional: Reports: No Symptoms Eyes: Reports: No Symptoms Ears: Reports: No Symptoms Nose: Reports: No Symptoms Mouth/Throat: Reports: Other (jaw pain) Respiratory: Denies: Shortness of Breath, Cough Cardiovascular: Denies: Chest Pain, Palpitations, Syncope GI/Abdominal: Denies: Abdominal Pain, Diarrhea, Nausea, Vomiting Musculoskeletal: Reports: Shoulder Pain, Arm Pain, Joint Pain Skin: Reports: No Symptoms Neurological: Reports: No Symptoms ED EXAM, GENERAL - Physical Exam Exam: See Below Exam Limited By: No Limitations General Appearance: Alert, WD/WN, Moderate Distress Ears: Normal External Exam, Normal TMs Nose: Normal Inspection, Normal Mucosa, No Blood Throat/Mouth: Normal Inspection, Normal Oropharynx Head: Normocephalic Neck: Normal Inspection, Supple, Non-Tender Respiratory/Chest: No Respiratory Distress, Lungs Clear, Normal Breath Sounds Cardiovascular: Regular Rate, Rhythm GI/Abdominal: Normal Bowel Sounds, Soft, Non-Tender Extremities: Arm Pain, Limited Range of Motion. No: Joint Swelling Neurological: Alert, Oriented Skin Exam: Warm, Dry Course - Vital Signs Last Recorded V/S: Last Vital Signs Temp 96.9 F 08/04/17 11:46 Pulse 61 08/04/17 11:46 Resp 18 08/04/17 11:46 BP 125/73 08/04/17 12:25 Pulse Ox 98 08/04/17 11:46 - Orders/Labs/Meds Labs: Laboratory Tests 08/04/17 08/04/17 08/04/17 Range/Units 11:49 11:49 11:49 WBC 6.3 (5.0-10.0) 10^3/uL RBC 4.57 (4.00-5.50) 10^6/uL Hgb 13.7 (12.0-16.0) g/dL Hct 40.7 (37.0-47.0) % MCV 89.1 (82.0-94.0) fL MCH 30.0 (27.0-32.0) pg MCHC 33.7 (33.0-38.0) g/dL RDW Coeff of Eugenia 13.6 (11.0-15.0) % Plt Count 227 (150-400) 10^3/uL Neut % (Auto) 58.3 (35-85) % Lymph % (Auto) 29.6 (10-55) % [place] % (Auto) 10.7 (0-16) % Eos % (Auto) 1.1 (0-5) % Baso % (Auto) 0.3 (0-3) % Neut # (Auto) 3.64 (1.80-7.00) 10^3/uL Lymph # (Auto) 1.85 (1.00-4.80) 10^3/uL [place] # (Auto) 0.67 (0.00-0.80) 10^3/uL Eos # (Auto) 0.07 (0.00-0.45) 10^3/uL Baso # (Auto) 0.02 10^3/uL PT 29.6 H (9.7-12.3) SEC INR 3.09 H (0.92-1.18) APTT 49.7 H (23.2-32.3) SEC Sodium 135 L (136-145) mEq/L Potassium 4.2 (3.5-5.0) mEq/L Chloride 101 (98-106) mEq/L Carbon Dioxide 25 (21-32) mmol/L BUN 15 (7-18) mg/dL Creatinine 0.7 (0.6-1.0) mg/dL Est Cr Clr Drug Dosing 45.95 mL/min Estimated GFR (MDRD) > 60 (>=60) mL/min Glucose 101 H D (75-99) mg/dL Calcium 9.0 (8.4-10.1) mg/dL Lactate Dehydrogenase 244 H (100-190) U/L Creatine Kinase 140 (21-215) U/L Troponin I < 0.017 (0.00-0.06) ng/mL Meds: Medications Discontinued Medications Generic Name Dose Route Start Last Admin Trade Name Raghu PRN Reason Stop Dose Admin Fentanyl 50 mcg 08/04/17 12:00 08/04/17 12:05 Sublimaze IM 08/04/17 12:01 50 mcg ONETIME ONE Administration Fentanyl Confirm 08/04/17 11:52 08/04/17 12:05 Sublimaze Administered 08/04/17 11:53 Not Given Dose 100 mcg .ROUTE .STK-MED ONE Fentanyl 50 mcg 08/04/17 12:31 08/04/17 12:38 Sublimaze IVPUSH 08/04/17 12:32 50 mcg ONETIME ONE Administration Hydromorphone HCl 0.5 mg 08/04/17 13:23 08/04/17 13:28 Dilaudid IVPUSH 08/04/17 13:24 0.5 mg ONETIME ONE Administration Ketorolac Tromethamine Confirm 08/04/17 12:06 08/04/17 12:20 Toradol Administered 08/04/17 12:07 Not Given Dose 30 mg .ROUTE .STK-MED ONE Ketorolac Tromethamine 30 mg 08/04/17 12:21 08/04/17 12:20 Toradol IVPUSH 08/04/17 12:22 30 mg ONETIME ONE Administration Ondansetron HCl 4 mg 08/04/17 14:15 08/04/17 14:20 Zofran IVPUSH 4 mg Q6H PRN Administration Nausea/Vomiting Orphenadrine Citrate 60 mg 08/04/17 12:00 08/04/17 12:06 Norflex IM 60 mg Q12H JOAQUIN Administration Orphenadrine Citrate Confirm 08/04/17 11:52 08/04/17 12:05 Norflex Administered 08/04/17 11:53 Not Given Dose 60 mg .ROUTE .STK-MED ONE - Re-Assessments/Exams Free Text/Narrative Re-Assessment/Exam: 08/04/17 1250 Patient is noted to be in a considerable amount of discomfort. Pain meds given without much relief. Unable to get shoulder xray until now due to pain. Has been given Fentanyl 100 mg, Toradol 30 mg and Norflex due to pain. Chest pain protocol done and EKG is NSR. Did have radiologist review films and notes anterior sublaxation. Report given to Mayra Evans to resume care due to need to leave for satellite clinic. Departure - Departure Disposition: Home, Self-Care 01 Clinical Impression: Dislocation of right shoulder joint Qualifiers: Encounter type: initial encounter Qualified Code(s): S43.004A - Unspecified dislocation of right shoulder joint, initial encounter - Discharge Information Instructions: Shoulder Dislocation, [id number] Referrals: PCP,None [Primary Care Provider] - Forms: ED Department Discharge Additional Instructions: 1) REST RIGHT SHOULDER UNTIL F/U MRI. KEEP RIGHT SHOULDER IN SLING TO AVOID RECURRENT DISLOCATION. 2) ICE RIGHT SHOULDER THREE TIMES DAILY FOR 20 MINUTES AT A TIME 3) [place] 1-2 TAB EVERY 4-6 HOURS NEEDED FOR SEVERE PAIN. TYLENOL 650 MG EVERY 6 HOURS FOR LESS SEVERE PAIN 4) FOLLOW UP WITH PCP FOR MRI RESULTS 08/13/2017 <Mayra Evans L - Last Filed: 08/06/17 07:55> Course - Re-Assessments/Exams Free Text/Narrative Re-Assessment/Exam: 08/04/17 13:00 Mayra Gerardo DNP-C, resumed care of the patient at 1300. Report was received from radiologist indicating that shoulder was anteriorly dislocated. Patient was resting comfortably. We attempted manual reduction without success. Patient was given 0.5 mg dilaudid IV. Sand bag technique was then utilized without success. Dr. Cordova came over and attempted manual reduction. Believed to have reduced adequately. Patient tolerated fairly well. Repeat images of right shoulder taken and appear to be better aligned. Discussed with Dr. Hendrix re: MRI this week vs. next week given significant joint effusion. She recommends waiting until next week to get MRI as this will provide better images. Patient scheduled for MRI of right shoulder 08/11/2017 at 3 pm. Patient will be discharged home. Right shoulder sling applied. Script for [place] 5-325 mg 1-2 tab PO Q 4-6 hours PRN pain. Tylenol for less severe pain. Patient and daughter voiced understanding and were comfortable with discharge home. Departure - Departure Time of Disposition: 14:49 Condition: Good
[2017-08-04] MEDS ORDERED: HYDROmorphone 1 MG/ML Syringe IVPUSH ONE (13:23)
[2017-08-04] MEDS ORDERED: Ondansetron 4 MG/2 ML SDV IVPUSH PRN (14:15)
== END 2017-08-04 15:45 | disposition home or self-care (01) ==
LOC: CC.ED 11:40
DX: S43.004A Unspecified dislocation of right shoulder joint, initial encounter (principal); I48.91 Unspecified atrial fibrillation; E78.00 Pure hypercholesterolemia, unspecified; I10 Essential (primary) hypertension; Z79.01 Long term (current) use of anticoagulants; Z79.899 Other long term (current) drug therapy; X58.XXXA Exposure to other specified factors, initial encounter
CPT/HCPCS: 23650; 36415; 71045; 73030-RT; 80048; 82550; 83615; 84484; 85025; 85610; 85730; 93005; 96372; 96374; 96375; 99284; J1170; J1885; J2360; J2405; J3010

== ENCOUNTER 2020-06-02 01:12 | Emergency (ER) | payer MEDICARE, OTHER ==
[2020-06-02 01:28] VITALS: BP 146/101; PULSE 89
--- NOTE | 2020-06-02 01:49 | EDM.PDOC ---
ED HPI GENERAL MEDICAL PROBLEM - General Chief Complaint: Back Pain or Injury Stated Complaint: upper back pain Time Seen by Provider: 06/02/20 01:37 Source of Information: Reports: Patient History Limitations: Reports: No Limitations - History of Present Illness INITIAL COMMENTS - FREE TEXT/NARRATIVE: Neetu is an 84 year old female who presents to ER with complaints of left upper back pain. Has been hurting now since Thursday but was much worse this evening after retiring to bed. She does recall bending over her tub to clean it on Thursday but "nothing out of the ordinary" but had discomfort that evening. Has persisted all week. Taking tylenol which does help somewhat with the discomfort but "ran out of it". She was seen by lula Silverman on , had lab work done as thought had bladder infection. UA was positive, other labs normal. Also had a skin infection in her left arm so was started on Augmentin to cover both. patient denies any fevers. No chest pain or shortness of breath. Pain was worse with lying down and then trying to get up, better now that is sitting in the chair. [place] mildly nauseated, no vomiting, feels it was from the pain. Onset: Gradual Duration: Getting Worse Location: Reports: Back Quality: Reports: Ache Severity: Moderate Improves with: Reports: Rest Worsens with: Reports: Movement Associated Symptoms: Reports: Nausea/Vomiting. Denies: Confusion, Chest Pain, Cough, Diaphoresis, Fever/Chills, Loss of Appetite, Malaise, Shortness of Breath, Weakness Treatments GLOBAL MANAGER: Reports: Acetaminophen upper back Pain Score (Numeric/FACES): 7 - Related Data Allergies Allergy/AdvReac Type Severity Reaction Status Date / Time No Known Allergies Allergy Verified 06/02/20 01:28 Home Meds: Home Meds Multivitamin [Daily Multiple Vitamin] 1 tab PO DAILY 05/15/16 [History] Metoprolol Succinate [Toprol XL] 50 mg PO DAILY #30 tab.er 07/15/16 [Rx] amLODIPine Besylate [Amlodipine Besylate] 5 mg PO DAILY 08/04/17 [History] Calcium Carb, Citrate/Vit D3 [Calcium + D3 ER Tablet] 1 each PO DAILY 12/08/17 [History] Cholecalciferol (Vitamin D3) [Vitamin D3] 2,000 unit PO DAILY 12/08/17 [History] Apixaban [Eliquis] 5 mg PO BID 06/02/20 [History] Cranberry 400 mg PO DAILY 06/02/20 [History] Red Yeast Rice 600 mg PO DAILY 06/02/20 [History] Past Medical History HEENT History: Reports: Cataract, Impaired Vision Cardiovascular History: Reports: Afib, Blood Clots/VTE/DVT, High Cholesterol, Hypertension, Other (See Below) Respiratory History: Reports: None Gastrointestinal History: Reports: None Genitourinary History: Reports: None Musculoskeletal History: Reports: None Neurological History: Reports: None Psychiatric History: Reports: None Endocrine/Metabolic History: Reports: None Hematologic History: Reports: None Immunologic History: Reports: None Oncologic (Cancer) History: Reports: None Dermatologic History: Reports: None - Infectious Disease History Infectious Disease History: Reports: None - Past Surgical History Head Surgeries/Procedures: Reports: None HEENT Surgical History: Reports: Cataract Surgery Cardiovascular Surgical History: Reports: None Respiratory Surgical History: Reports: None GI Surgical History: Reports: None Female Surgical History: Reports: Hysterectomy Endocrine Surgical History: Reports: None Neurological Surgical History: Reports: None Musculoskeletal Surgical History: Reports: Other (See Below) Other Musculoskeletal Surgeries/Procedures:: R)femur fx with ORIF 20 yrs ago Oncologic Surgical History: Reports: None Dermatological Surgical History: Reports: None - Past Imaging History Past Imaging History: Reports: None Social & Family History - Family History Family Medical History: No Pertinent Family History HEENT: Reports: None Cardiac: Reports: CAD Respiratory: Reports: None GI: Reports: None : Reports: None OBGYN: Reports: None Musculoskeletal: Reports: Osteoporosis Neurological: Reports: None Psychiatric: Reports: None Endocrine/Metabolic: Reports: None Hematologic: Reports: None Immunologic: Reports: None Dermatologic: Reports: None Oncologic: Reports: None Other Oncologic Family History: Mother, sister both had breast ca. 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 Denies: Fever, Malaise, Weakness, Fatigue, Decreased Appetite HEENT: Reports: No Symptoms Respiratory: Denies: Shortness of Breath Cardiovascular: Denies: Chest Pain, Edema, Lightheadedness Endocrine: Denies: Fatigue GI/Abdominal: Reports: Nausea. Denies: Abdominal Pain, Constipation, Diarrhea, Vomiting : Reports: Frequency Musculoskeletal: Reports: Neck Pain, Back Pain Skin: Reports: Erythema (improving to right arm) Neurological: Reports: No Symptoms Psychiatric: Reports: No Symptoms ED EXAM, UPPER BACK/NECK PAIN - Physical Exam Exam: See Below Exam Limited By: No Limitations General Appearance: Alert, WD/WN, No Apparent Distress Ears Exam: Normal External Exam, Normal TMs Nose Exam: Normal Inspection, Normal Mucousa, No Blood Throat/Mouth Exam: Normal Inspection, Normal Oropharynx Head Exam: Normocephalic Neck Exam: Non-Tender, Full Range of Motion Cardiovascular/Respiratory: Irregularly Irregular GI/Abdominal: Normal Bowel Sounds, Soft, Non-Tender Extremities: Redness (right arm has mild redness and warmth, minimal swelling now to the right lateral wrist region) Psychiatric: Normal Affect, Normal Mood Course - Vital Signs Last Recorded V/S: Last Vital Signs Temp 96.5 F L 06/02/20 01:23 Pulse 89 06/02/20 01:23 Resp 18 06/02/20 01:23 BP 146/101 H 06/02/20 01:23 Pulse Ox 95 06/02/20 01:23 - Orders/Labs/Meds Labs: Laboratory Tests 06/02/20 06/02/20 06/02/20 Range/Units 01:39 01:39 01:39 WBC 5.0 (5.0-10.0) 10^3/uL RBC 4.12 (4.00-5.50) 10^6/uL Hgb 12.5 (12.0-16.0) g/dL Hct 36.4 L (37.0-47.0) % MCV 88.3 (82.0-94.0) fL MCH 30.3 (27.0-32.0) pg MCHC 34.3 (33.0-38.0) g/dL RDW Coeff of Eugenia 13.7 (11.0-15.0) % Plt Count 197 (150-400) 10^3/uL Neut % (Auto) 59.4 (35-85) % Lymph % (Auto) 23.3 (10-55) % [place] % (Auto) 14.3 (0-16) % Eos % (Auto) 2.4 (0-5) % Baso % (Auto) 0.6 (0-3) % Neut # (Auto) 2.96 (1.80-7.00) 10^3/uL Lymph # (Auto) 1.16 (1.00-4.80) 10^3/uL [place] # (Auto) 0.71 (0.00-0.80) 10^3/uL Eos # (Auto) 0.12 (0.00-0.45) 10^3/uL Baso # (Auto) 0.03 10^3/uL D-Dimer, Quantitative 0.51 H (0.00-0.50) Sodium 134 L (136-145) mEq/L Potassium 3.7 (3.5-5.0) mEq/L Chloride 97 L (98-106) mEq/L Carbon Dioxide 28 (21-32) mmol/L BUN 11 (7-18) mg/dL Creatinine 0.7 (0.6-1.0) mg/dL Est Cr Clr Drug Dosing 44.34 mL/min Estimated GFR (MDRD) > 60 (>=60) mL/min Glucose 92 (75-99) mg/dL Calcium 9.5 (8.4-10.1) mg/dL Total Bilirubin 0.6 (0.0-1.0) mg/dL AST 24 (15-37) U/L ALT 33 (12-78) U/L Alkaline Phosphatase 81 (46-116) U/L C-Reactive Protein 2.3 H (0.2-0.8) mg/dL Total Protein 7.3 (6.4-8.2) g/dL Albumin 3.4 (3.4-5.0) g/dL Meds: Medications Discontinued Medications Generic Name Dose Route Start Last Admin Trade Name Freq PRN Reason Stop Dose Admin Hydrocodone Bitart/Acetaminophen 1 tab 06/02/20 01:50 06/02/20 01:54 Acetaminophen/Hydrocodone 325-5 Mg Tab PO 06/02/20 01:51 1 tab ONETIME ONE Administration - Re-Assessments/Exams Free Text/Narrative Re-Assessment/Exam: 06/02/20 0150 [place] given to patient for pain. 0200- Labs are all relatively normal. discussed with patient. Advised to use biofreeze, pain meds. Heating pad if able. Departure - Departure Time of Disposition: 02:05 Disposition: Home, Self-Care 01 Condition: Fair Clinical Impression: Back pain - Discharge Information *PRESCRIPTION DRUG MONITORING PROGRAM REVIEWED*: No *COPY OF PRESCRIPTION DRUG MONITORING REPORT IN PATIENT MADELYN: No Instructions: Acute Back Pain, Adult Forms: ED Department Discharge Additional Instructions: 1. Rest 2. Position to comfort 3. [place] 1 tab every 6 hours as needed for pain 4. May take tylenol for lesser pain 5. Heating pad or biofreeze to affected area 6. Follow up if any persisting concerns. Sepsis Event Note (ED) - Evaluation Sepsis Screening Result: No Definite Risk - Focused Exam Vital Signs: Vital Signs Temp Pulse Resp BP Pulse Ox 06/02/20 01:23 96.5 F L 89 18 146/101 H 95 06/02/20 01:17 133/86
[2020-06-02] MEDS ORDERED: Acetaminophen/HYDROcodone 325-5 MG Tab PO ONE (01:50)
[2020-06-02 01:53] LABS: CHLORIDE,CL 97 mEq/L (98-106); SODIUM,NA 134 mEq/L (136-145)
[2020-06-02] MEDS ORDERED: Take Home: Acetaminophen/HYDROcodone 325-5 MG, 2 Tab Pack PO ONE (02:07)
== END 2020-06-02 02:22 | disposition home or self-care (01) ==
LOC: CC.ED 01:12
DX: M54.5 Low back pain (principal); I10 Essential (primary) hypertension; I48.91 Unspecified atrial fibrillation; Z79.01 Long term (current) use of anticoagulants; Z79.899 Other long term (current) drug therapy
CPT/HCPCS: 36415; 80053; 85025; 85379; 86140; 99283; A9270-GY

== ENCOUNTER 2020-10-17 06:10 | Emergency (ER) | payer MEDICARE, OTHER ==
[2020-10-17 06:59] VITALS: BP 150/90; PULSE 56
--- NOTE | 2020-10-17 07:31 | EDM.PDOC ---
ED HPI GENERAL MEDICAL PROBLEM - General Chief Complaint: General Stated Complaint: Fell Time Seen by Provider: 10/17/20 07:00 Source of Information: Reports: Patient History Limitations: Reports: No Limitations - History of Present Illness INITIAL COMMENTS - FREE TEXT/NARRATIVE: Neetu is an 85 year old female who presents to ER with complaints of right side back pain. At around 0130, states rolled over in her bed and didn't realize she was so close to the edge and rolled out of the bed. Denies any head injury or any neck pain. States landed on her right side. Is having pain with deep inspiration and cough. Has had previous rib fracture but "doesn't hurt as bad as that". Was incontinent after fall. Was able to get herself up off the floor and returned back to bed. At around 0330, did have to get up to the bathroom yet again and had ongoing pain. At around 0530, did call her daughter due to complaints of pain. Denies pain in her head, neck, hips. No shortness of breath. Does feel she is able to still get enough air in as she took ibuprofen at 0300 at that did help. No urinary burning or complaints. Historically patient has had several bladder infections where she only had back pain as a symptom. No fevers. 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 Right Middle Posterior Back Pain Score (Numeric/FACES): 10 - Related Data Allergies Allergy/AdvReac Type Severity Reaction Status Date / Time No Known Allergies Allergy Verified 10/17/20 07:32 Home Meds: Home Meds Multivitamin [Daily Multiple Vitamin] 1 tab PO DAILY 05/15/16 [History] Metoprolol Succinate [Toprol XL] 50 mg PO DAILY #30 tab.er 07/15/16 [Rx] amLODIPine Besylate [Amlodipine Besylate] 5 mg PO BEDTIME 08/04/17 [History] Cholecalciferol (Vitamin D3) [Vitamin D3] 2,000 unit PO DAILY 12/08/17 [History] Apixaban [Eliquis] 5 mg PO BID 06/02/20 [History] Cranberry 300 mg PO BID 06/02/20 [History] Red Yeast Rice 600 mg PO DAILY 06/02/20 [History] Ascorbic Acid [Vitamin C] 1,000 mg PO DAILY 10/17/20 [History] Calcium Carbonate [Calcium] 600 mg PO DAILY 10/17/20 [History] Denosumab [Prolia] 1 inh SQ Q6M 10/17/20 [History] Past Medical History HEENT History: Reports: Cataract, Impaired Vision Cardiovascular History: Reports: Afib, Blood Clots/VTE/DVT, High Cholesterol, Hypertension, Other (See Below) Respiratory History: Reports: None Gastrointestinal History: Reports: None Genitourinary History: Reports: None Musculoskeletal History: Reports: None Neurological History: Reports: None Psychiatric History: Reports: None Endocrine/Metabolic History: Reports: None Hematologic History: Reports: None Immunologic History: Reports: None Oncologic (Cancer) History: Reports: None Dermatologic History: Reports: None - Infectious Disease History Infectious Disease History: Reports: None - Past Surgical History Head Surgeries/Procedures: Reports: None HEENT Surgical History: Reports: Cataract Surgery Cardiovascular Surgical History: Reports: None Respiratory Surgical History: Reports: None GI Surgical History: Reports: None Female Surgical History: Reports: Hysterectomy Endocrine Surgical History: Reports: None Neurological Surgical History: Reports: None Musculoskeletal Surgical History: Reports: Other (See Below) Other Musculoskeletal Surgeries/Procedures:: R)femur fx with ORIF 20 yrs ago Oncologic Surgical History: Reports: None Dermatological Surgical History: Reports: None - Past Imaging History Past Imaging History: Reports: None Social & Family History - Family History Family Medical History: No Pertinent Family History HEENT: Reports: None Cardiac: Reports: CAD Respiratory: Reports: None GI: Reports: None : Reports: None OBGYN: Reports: None Musculoskeletal: Reports: Osteoporosis Neurological: Reports: None Psychiatric: Reports: None Endocrine/Metabolic: Reports: None Hematologic: Reports: None Immunologic: Reports: None Dermatologic: Reports: None Oncologic: Reports: None Other Oncologic Family History: Mother, sister both had breast ca. 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 Denies: Shortness of Breath, Cough Cardiovascular: Denies: Chest Pain, Edema, Lightheadedness Endocrine: Denies: Fatigue GI/Abdominal: Denies: Abdominal Pain, Constipation, Diarrhea, Nausea, Vomiting : Reports: Incontinence. Denies: Dysuria, Flank Pain Musculoskeletal: Reports: Back Pain Skin: Reports: No Symptoms Neurological: Reports: No Symptoms Psychiatric: Reports: No Symptoms ED EXAM, GENERAL - Physical Exam Exam: See Below Exam Limited By: No Limitations General Appearance: Alert, WD/WN, No Apparent Distress Ears: Normal External Exam, Normal TMs Nose: Normal Inspection, Normal Mucosa, No Blood Throat/Mouth: Normal Inspection, Normal Oropharynx Head: Normocephalic Neck: Normal Inspection, Supple, Non-Tender Respiratory/Chest: No Respiratory Distress, Lungs Clear, Normal Breath Sounds Cardiovascular: Irregularly Irregular GI/Abdominal: Normal Bowel Sounds, Soft, Non-Tender Back Exam: Normal Inspection, CVA Tenderness (R) Extremities: Normal Inspection, No Pedal Edema Neurological: Alert, Oriented Skin Exam: Warm, Dry Course - Vital Signs Last Recorded V/S: Last Vital Signs Temp 97.3 F 10/17/20 06:55 Pulse 56 L 10/17/20 06:55 Resp 20 10/17/20 06:55 BP 150/90 H 10/17/20 06:55 Pulse Ox 97 10/17/20 06:55 - Orders/Labs/Meds Orders: Active Orders 24 hr Category Date Time Status Ribs 2V w Chest Rt [CR] Stat Exams 10/17/20 06:37 Taken Labs: Laboratory Tests 10/17/20 Range/Units 07:23 Urine Color Yellow (YELLOW) Urine Appearance Slightly cloudy (CLEAR) Urine pH 7.0 (4.5-8.0) Ur Specific [place] 1.020 (1.003-1.020) Urine Protein Negative (NEGATIVE) mg/dL Urine Glucose (UA) Negative (NEGATIVE) mg/dL Urine Ketones Negative (NEGATIVE) mg/dL Urine Occult Blood Trace-intact H (NEGATIVE) Urine Nitrite Negative (NEGATIVE) Urine Bilirubin Negative (NEGATIVE) Urine Urobilinogen 0.2 (0.2-1.0) EU/dL Ur Leukocyte Esterase Trace H (NEGATIVE) Urine RBC 0-5 (0-5) /HPF Urine WBC 0-5 (0-5) /HPF Ur Epithelial Cells Few H (NOT SEEN) /HPF Amorphous Sediment Moderate H (NOT SEEN) /HPF Meds: Medications Discontinued Medications Generic Name Dose Route Start Last Admin Trade Name Freq PRN Reason Stop Dose Admin Acetaminophen 1,000 mg 10/17/20 07:45 10/17/20 07:53 Acetaminophen 500 Mg Tab PO 10/17/20 07:46 1,000 mg ONETIME ONE Administration - Re-Assessments/Exams Free Text/Narrative Re-Assessment/Exam: 10/17/2015-Xrays appear negative for any fractures. Discussed pain management with nette bran. Does have difficulty with sedation with norco and tramadol. Has used Tylenol #3 in the past, will prescribe for pain, ensure cough and deep breathing exercises. Ice or heat. Daughter concerned about possible UTI due to incontinence. UA was done, is negative. Departure - Departure Time of Disposition: 07:40 Disposition: Home, Self-Care 01 Condition: Fair Clinical Impression: Back pain, Contusion of rib on right side - Discharge Information *PRESCRIPTION DRUG MONITORING PROGRAM REVIEWED*: No *COPY OF PRESCRIPTION DRUG MONITORING REPORT IN PATIENT MADELYN: No Instructions: Acute Back Pain, Adult, Rib Contusion Referrals: PCP,Unknown [Ordering Only Provider] - Forms: ED Department Discharge Additional Instructions: 1. Ice to back today, alternate with heat 2. Use walker for stability 3. Tylenol #3 one tab every 4 hours as needed for pain 4. Will contact you if any concerns with radiology report 5. Return if increasing pain, immobility or any concerns. Sepsis Event Note (ED) - Evaluation Sepsis Screening Result: No Definite Risk - Focused Exam Vital Signs: Vital Signs Temp Pulse Resp BP Pulse Ox 10/17/20 06:55 97.3 F 56 L 20 150/90 H 97 10/17/20 06:26 71 20 129/89 97 - My Orders Last 24 Hours: My Active Orders 10/17/20 06:37 Ribs 2V w Chest Rt [CR] Stat - Assessment/Plan Last 24 Hours: My Active Orders 10/17/20 06:37 Ribs 2V w Chest Rt [CR] Stat
[2020-10-17] MEDS ORDERED: Acetaminophen 500 MG Tab PO ONE (07:45)
== END 2020-10-17 07:55 | disposition home or self-care (01) ==
LOC: CC.ED 06:10
DX: S20.211A Contusion of right front wall of thorax, initial encounter (principal); I48.91 Unspecified atrial fibrillation; I10 Essential (primary) hypertension; Z79.01 Long term (current) use of anticoagulants; Z79.899 Other long term (current) drug therapy; W06.XXXA Fall from bed, initial encounter
CPT/HCPCS: 71101-RT; 81001; 99283; 99283-25; A9270-GY

== ENCOUNTER 2023-02-10 02:51 | Inpatient (IN) | payer MEDICARE, OTHER ==
[2023-02-10] MEDS ORDERED: Ondansetron 4 MG/2 ML SDV IVPUSH ONE (03:14)
[2023-02-10] MEDS ORDERED: Famotidine 20 MG/2 ML SDV IVPUSH ONE (03:14)
[2023-02-10] MEDS ORDERED: Sodium Chloride 0.9% 500 ML IV SCH (03:15)
[2023-02-10 03:23] LABS: BASOPHILS ABSOLUTE AUTO 0.03 10^3/uL (0.00-0.50); BASOPHILS PERCENT AUTO 0.4 % (0-1); EOSINOPHILS ABSOLUTE AUTO 0.05 10^3/uL (0.00-1.50); EOSINOPHILS PERCENT AUTO 0.7 % (0-6); HEMATOCRIT 39.7 % (37.0-47.0); HEMOGLOBIN 13.5 g/dL (12.0-16.0); IMMATURE GRAN ABSOLUTE AUTO 0.02 10^3/uL (0.00-0.49); IMMATURE GRAN PERCENT AUTO 0.3 % (0.0-4.9); LYMPHOCYTES ABSOLUTE AUTO 1.26 10^3/uL (0.60-5.00); LYMPHOCYTES PERCENT AUTO 16.4 % (24-44); MEAN CORPUSCULAR HEMOGLOBIN 30.5 pg (27.0-32.0); MEAN CORPUSCULAR VOLUME 89.8 fL (83.0-97.0); MONOCYTES PERCENT AUTO 5.2 % (0-10); NEUTROPHILS ABSOLUTE AUTO 5.92 x10^3/uL (1.80-8.00); PLATELET COUNT,PLT 253 10^3/uL (150-400); RED BLOOD CELL COUNT 4.42 x10^6/uL (4.00-5.50); WHITE BLOOD CELL COUNT,WBC 7.7 10^3/uL (4.0-11.0)
[2023-02-10 03:33] LABS: ALBUMIN 3.6 g/dL (3.4-5.0); BILIRUBIN TOTAL 0.6 mg/dL (0.0-1.0); CALCIUM 9.4 mg/dL (8.4-10.1); CREATININE 0.8 mg/dL (0.6-1.0); EST CRCL DRUG DOSING (CG) 36.68 mL/min; POTASSIUM,K 3.7 mEq/L (3.5-5.0); PROTEIN TOTAL,TP 7.3 g/dL (6.4-8.2)
[2023-02-10 03:38] LABS: LACTIC ACID 1.3 mmol/L (0.4-2.0)
[2023-02-10] MEDS ORDERED: Iopamidol 755 Mg/ML 100 ML Bottle IVPUSH ONE (03:40)
[2023-02-10] MEDS ORDERED: Ketorolac 30 MG/ML SDV IVPUSH ONE (04:01)
[2023-02-10] MEDS ORDERED: Metoclopramide 10 MG/2 ML SDV IVPUSH ONE (04:11)
[2023-02-10 04:24] LABS: APPEARANCE,URINE CLEAR (CLEAR); BILIRUBIN,URINE NEGATIVE (NEGATIVE); COLOR,URINE YELLOW (YELLOW); GLUCOSE,URINE NEGATIVE (NEGATIVE); KETONES,URINE NEGATIVE (NEGATIVE); LEUKOCYTE ESTERASE,URINE TRACE (NEGATIVE); NITRITE,URINE NEGATIVE (NEGATIVE); OCCULT BLOOD,URINE NEGATIVE (NEGATIVE); PROTEIN,URINE NEGATIVE (NEGATIVE); UROBILINOGEN,URINE 0.2 EU/dL (0.2-1.0)
[2023-02-10 04:31] LABS: RBC,URINE NOT SEEN /HPF (0-5); WBC,URINE 0-5 /HPF (0-5)
[2023-02-10 04:32] LABS: BACTERIA,URINE FEW /HPF (NOT SEEN)
[2023-02-10] MEDS ORDERED: Ondansetron 4 MG/2 ML SDV IV PRN (04:57)
[2023-02-10] MEDS ORDERED: Naloxone 2 MG/2 ML Syringe IVPUSH PRN (04:57)
[2023-02-10] MEDS ORDERED: Acetaminophen 325 MG Tab PO PRN (04:57)
[2023-02-10] MEDS ORDERED: Morphine 2 MG/ML SYRINGE IVPUSH PRN (04:57)
[2023-02-10] MEDS ORDERED: Sodium Chloride 0.9% 1,000 ML IV SCH (05:00)
[2023-02-10] MEDS: Non-Formulary Medication 1 Each (Denosumab [Prolia] 60 MG/ML Syringe) SQ SCH (05:44)
[2023-02-10] MEDS: Apixaban 5 MG Tab PO SCH ×2 (09:56→19:39)
[2023-02-10] MEDS: amLODIPine 2.5 MG Tab PO SCH (09:56)
[2023-02-10] MEDS: Multivitamin Tab PO SCH (09:57)
[2023-02-10] MEDS: Metoprolol Succinate 25 MG Tab.ER PO SCH (09:57)
[2023-02-10] MEDS: Calcium Carbonate 500 MG Tab.Chew PO SCH (09:57)
[2023-02-10] MEDS: Ascorbic Acid 500 MG Tab PO SCH (09:57)
[2023-02-10] MEDS: Cholecalciferol (Vitamin D3) 25 MCG Tab PO SCH (09:58)
[2023-02-10] MEDS: Morphine 2 MG/ML SYRINGE IVPUSH PRN ×2 (10:00→16:27)
[2023-02-10] MEDS: Metoclopramide 10 MG/2 ML SDV IVPUSH PRN (15:28)
[2023-02-10] MEDS: Sodium Chloride 0.9% 1,000 ML IV SCH (16:38)
[2023-02-11] MEDS: Metoclopramide 10 MG/2 ML SDV IVPUSH PRN ×2 (03:31→09:17)
[2023-02-11] MEDS: Sodium Chloride 0.9% 1,000 ML IV SCH ×2 (04:35→16:15)
[2023-02-11 07:28] LABS: BASOPHILS ABSOLUTE AUTO 0.02 10^3/uL (0.00-0.50); BASOPHILS PERCENT AUTO 0.2 % (0-1); HEMOGLOBIN 13.6 g/dL (12.0-16.0); IMMATURE GRAN ABSOLUTE AUTO 0.01 10^3/uL (0.00-0.49); IMMATURE GRAN PERCENT AUTO 0.1 % (0.0-4.9); LYMPHOCYTES ABSOLUTE AUTO 0.72 10^3/uL (0.60-5.00); LYMPHOCYTES PERCENT AUTO 7.8 % (24-44); MEAN CORPUSCULAR HEMOGLOBIN 30.2 pg (27.0-32.0); MEAN CORPUSCULAR HGB CONC 33.2 g/dL (32.0-36.0); MEAN CORPUSCULAR VOLUME 91.1 fL (83.0-97.0); MONOCYTES ABSOLUTE AUTO 0.63 10^3/uL (0.00-1.50); MONOCYTES PERCENT AUTO 6.9 % (0-10); NEUTROPHILS ABSOLUTE AUTO 7.81 x10^3/uL (1.80-8.00); PLATELET COUNT,PLT 285 10^3/uL (150-400); WHITE BLOOD CELL COUNT,WBC 9.2 10^3/uL (4.0-11.0)
[2023-02-11 07:46] LABS: ALBUMIN 2.8 g/dL (3.4-5.0); CALCIUM 8.3 mg/dL (8.4-10.1); CREATININE 0.8 mg/dL (0.6-1.0); EST CRCL DRUG DOSING (CG) 36.68 mL/min; MAGNESIUM 2.1 mg/dL (1.8-2.4); POTASSIUM,K 4.1 mEq/L (3.5-5.0); PROTEIN TOTAL,TP 6.3 g/dL (6.4-8.2)
[2023-02-11] MEDS: Calcium Carbonate 500 MG Tab.Chew PO SCH ×2 (08:13→08:56)
[2023-02-11] MEDS: Apixaban 5 MG Tab PO SCH ×2 (08:13→19:40)
[2023-02-11] MEDS: Metoprolol Succinate 25 MG Tab.ER PO SCH (08:13)
[2023-02-11] MEDS: amLODIPine 2.5 MG Tab PO SCH (08:14)
[2023-02-11] MEDS: Cholecalciferol (Vitamin D3) 25 MCG Tab PO SCH ×2 (08:14→08:59)
[2023-02-11] MEDS: Ascorbic Acid 500 MG Tab PO SCH ×2 (08:14→08:58)
[2023-02-11] MEDS: Multivitamin Tab PO SCH ×2 (08:14→08:56)
[2023-02-11] MEDS ORDERED: Benzocaine 20% Topical Spray UD MUCMEM ONE (09:15)
[2023-02-11] MEDS: Morphine 2 MG/ML SYRINGE IVPUSH PRN ×2 (09:51→16:30)
[2023-02-12] MEDS: Morphine 2 MG/ML SYRINGE IVPUSH PRN (01:16)
[2023-02-12] MEDS: Sodium Chloride 0.9% 1,000 ML IV SCH ×2 (03:36→15:04)
[2023-02-12] MEDS: Apixaban 5 MG Tab PO SCH (07:45)
[2023-02-12] MEDS: Cholecalciferol (Vitamin D3) 25 MCG Tab PO SCH (07:46)
[2023-02-12] MEDS: Metoprolol Succinate 25 MG Tab.ER PO SCH (07:46)
[2023-02-12] MEDS: Ascorbic Acid 500 MG Tab PO SCH (07:47)
[2023-02-12] MEDS: amLODIPine 2.5 MG Tab PO SCH (07:47)
[2023-02-12] MEDS: Multivitamin Tab PO SCH (07:47)
[2023-02-12] MEDS: Calcium Carbonate 500 MG Tab.Chew PO SCH (07:48)
[2023-02-12 07:58] LABS: BASOPHILS ABSOLUTE AUTO 0.02 10^3/uL (0.00-0.50); BASOPHILS PERCENT AUTO 0.4 % (0-1); EOSINOPHILS ABSOLUTE AUTO 0.02 10^3/uL (0.00-1.50); EOSINOPHILS PERCENT AUTO 0.4 % (0-6); HEMATOCRIT 38.9 % (37.0-47.0); HEMOGLOBIN 12.8 g/dL (12.0-16.0); IMMATURE GRAN ABSOLUTE AUTO 0.01 10^3/uL (0.00-0.49); IMMATURE GRAN PERCENT AUTO 0.2 % (0.0-4.9); LYMPHOCYTES ABSOLUTE AUTO 0.78 10^3/uL (0.60-5.00); LYMPHOCYTES PERCENT AUTO 15.1 % (24-44); MEAN CORPUSCULAR HEMOGLOBIN 30.7 pg (27.0-32.0); MEAN CORPUSCULAR HGB CONC 32.9 g/dL (32.0-36.0); MEAN CORPUSCULAR VOLUME 93.3 fL (83.0-97.0); MONOCYTES ABSOLUTE AUTO 0.69 10^3/uL (0.00-1.50); MONOCYTES PERCENT AUTO 13.4 % (0-10); NEUTROPHILS ABSOLUTE AUTO 3.64 x10^3/uL (1.80-8.00); NEUTROPHILS PERCENT AUTO 70.5 % (41-71); PLATELET COUNT,PLT 256 10^3/uL (150-400); RED BLOOD CELL COUNT 4.17 x10^6/uL (4.00-5.50); WHITE BLOOD CELL COUNT,WBC 5.2 10^3/uL (4.0-11.0)
[2023-02-12 08:42] LABS: ALBUMIN 2.6 g/dL (3.4-5.0); CALCIUM 7.8 mg/dL (8.4-10.1); CREATININE 0.7 mg/dL (0.6-1.0); EST CRCL DRUG DOSING (CG) 41.92 mL/min; MAGNESIUM 2.2 mg/dL (1.8-2.4); POTASSIUM,K 4.1 mEq/L (3.5-5.0)
[2023-02-12 14:18] VITALS: BP 116/72; PULSE 85
== END 2023-02-12 15:15 | DRG 390 ==
LOC: CC.ED 02:51 → CC.MS 04:57 → UNDOADMIN 05:07
PROVIDERS: ADMIT Physician Assistant Medical; ATTEND Physician Assistant Medical
PROC: 0DH67UZ Insertion of Feeding Device into Stomach, Via Natural or Artificial Opening (ICD-10-PCS; principal; 2023-02-10)
DX: K56.699 Other intestinal obstruction unspecified as to partial versus complete obstruction (principal); K56.609 Unspecified intestinal obstruction, unspecified as to partial versus complete obstruction; I48.91 Unspecified atrial fibrillation; Z66 Do not resuscitate; E78.00 Pure hypercholesterolemia, unspecified; I10 Essential (primary) hypertension; Z86.16 Personal history of COVID-19; Z79.01 Long term (current) use of anticoagulants; Z79.899 Other long term (current) drug therapy; Z86.718 Personal history of other venous thrombosis and embolism; Z98.49 Cataract extraction status, unspecified eye; Z90.710 Acquired absence of both cervix and uterus; Z98.890 Other specified postprocedural states
CPT/HCPCS: 36415; 71045; 74177; 80053; 81001; 83605; 83690; 83735; 84484; 85025; 96374; 96375; 97161-GP; 99285-25; A9270-GY; J1885; J2270; J2405; J2765; J3490; J7030; J7040; Q9967

== ENCOUNTER 2023-03-03 13:32 | Inpatient (IN) | payer MEDICARE, OTHER ==
[2023-03-03] MEDS ORDERED: Acetaminophen 325 MG Tab PO PRN (16:12)
[2023-03-03] MEDS ORDERED: Magnesium Hydroxide 400 MG/5 ML Susp 30 ML Cup PO PRN (16:12)
[2023-03-03] MEDS ORDERED: Bisacodyl 5 MG Tab PO PRN (16:12)
[2023-03-03] MEDS ORDERED: Ondansetron 4 MG Tab.DIS PO PRN (16:12)
[2023-03-03] MEDS: Metoprolol Tartrate 50 MG Tab PO SCH (19:34)
[2023-03-03] MEDS: Apixaban 5 MG Tab PO SCH (19:34)
[2023-03-04] MEDS: Apixaban 5 MG Tab PO SCH ×2 (08:16→19:51)
[2023-03-04] MEDS: Multivitamin Tab PO SCH (08:16)
[2023-03-04] MEDS: Cholecalciferol (Vitamin D3) 25 MCG Tab PO SCH (08:16)
[2023-03-04] MEDS: Metoprolol Tartrate 50 MG Tab PO SCH ×2 (08:16→19:50)
[2023-03-04] MEDS: Calcium Carbonate 500 MG Tab.Chew PO SCH (08:16)
[2023-03-04] MEDS: Ascorbic Acid 500 MG Tab PO SCH (08:17)
[2023-03-05] MEDS: Ascorbic Acid 500 MG Tab PO SCH (07:30)
[2023-03-05] MEDS: Metoprolol Tartrate 50 MG Tab PO SCH ×2 (07:30→19:52)
[2023-03-05] MEDS: Calcium Carbonate 500 MG Tab.Chew PO SCH (07:30)
[2023-03-05] MEDS: Multivitamin Tab PO SCH (07:30)
[2023-03-05] MEDS: Cholecalciferol (Vitamin D3) 25 MCG Tab PO SCH (07:30)
[2023-03-05] MEDS: Apixaban 5 MG Tab PO SCH ×2 (07:30→19:51)
[2023-03-06] MEDS: Ascorbic Acid 500 MG Tab PO SCH (07:45)
[2023-03-06] MEDS: Metoprolol Tartrate 50 MG Tab PO SCH ×2 (07:46→19:44)
[2023-03-06] MEDS: Apixaban 5 MG Tab PO SCH ×2 (07:46→19:44)
[2023-03-06] MEDS: Multivitamin Tab PO SCH (07:46)
[2023-03-06] MEDS: Cholecalciferol (Vitamin D3) 25 MCG Tab PO SCH (07:46)
[2023-03-06] MEDS: Calcium Carbonate 500 MG Tab.Chew PO SCH (07:47)
[2023-03-07] MEDS: Metoprolol Tartrate 50 MG Tab PO SCH ×2 (08:54→19:32)
[2023-03-07] MEDS: Multivitamin Tab PO SCH (08:54)
[2023-03-07] MEDS: Ascorbic Acid 500 MG Tab PO SCH (08:55)
[2023-03-07] MEDS: Cholecalciferol (Vitamin D3) 25 MCG Tab PO SCH (08:55)
[2023-03-07] MEDS: Apixaban 5 MG Tab PO SCH ×2 (08:55→19:32)
[2023-03-07] MEDS: Calcium Carbonate 500 MG Tab.Chew PO SCH (08:55)
[2023-03-08] MEDS: Metoprolol Tartrate 50 MG Tab PO SCH ×2 (08:29→19:09)
[2023-03-08] MEDS: Cholecalciferol (Vitamin D3) 25 MCG Tab PO SCH (08:30)
[2023-03-08] MEDS: Ascorbic Acid 500 MG Tab PO SCH (08:31)
[2023-03-08] MEDS: Apixaban 5 MG Tab PO SCH ×2 (08:32→19:09)
[2023-03-08] MEDS: Multivitamin Tab PO SCH (08:32)
[2023-03-08] MEDS: Calcium Carbonate 500 MG Tab.Chew PO SCH (08:34)
[2023-03-09] MEDS: Metoprolol Tartrate 50 MG Tab PO SCH ×2 (08:17→20:20)
[2023-03-09] MEDS: Apixaban 5 MG Tab PO SCH ×2 (08:17→20:20)
[2023-03-09] MEDS: Multivitamin Tab PO SCH (08:17)
[2023-03-09] MEDS: Calcium Carbonate 500 MG Tab.Chew PO SCH (08:17)
[2023-03-09] MEDS: Ascorbic Acid 500 MG Tab PO SCH (08:17)
[2023-03-09] MEDS: Cholecalciferol (Vitamin D3) 25 MCG Tab PO SCH (08:17)
[2023-03-10] MEDS: Apixaban 5 MG Tab PO SCH ×2 (07:53→19:45)
[2023-03-10] MEDS: Metoprolol Tartrate 50 MG Tab PO SCH ×2 (07:53→19:44)
[2023-03-10] MEDS: Multivitamin Tab PO SCH (07:54)
[2023-03-10] MEDS: Calcium Carbonate 500 MG Tab.Chew PO SCH (07:54)
[2023-03-10] MEDS: Ascorbic Acid 500 MG Tab PO SCH (07:54)
[2023-03-10] MEDS: Cholecalciferol (Vitamin D3) 25 MCG Tab PO SCH (07:54)
[2023-03-11] MEDS: Multivitamin Tab PO SCH (07:47)
[2023-03-11] MEDS: Ascorbic Acid 500 MG Tab PO SCH (07:48)
[2023-03-11] MEDS: Calcium Carbonate 500 MG Tab.Chew PO SCH (07:48)
[2023-03-11] MEDS: Cholecalciferol (Vitamin D3) 25 MCG Tab PO SCH (07:48)
[2023-03-11] MEDS: Apixaban 5 MG Tab PO SCH (07:48)
[2023-03-11] MEDS: Metoprolol Tartrate 50 MG Tab PO SCH (07:48)
[2023-03-11 07:51] VITALS: BP 129/88; PULSE 113
== END 2023-03-11 09:15 | disposition home or self-care (01) | DRG 948 ==
LOC: CC.MS 15:11
PROVIDERS: ADMIT Nurse Practitioner Family; ATTEND Nurse Practitioner Family
DX: R53.81 Other malaise (principal); N39.0 Urinary tract infection, site not specified; T81.31XA Disruption of external operation (surgical) wound, not elsewhere classified, initial encounter; R53.1 Weakness; Z66 Do not resuscitate; R60.0 Localized edema; I48.91 Unspecified atrial fibrillation; E78.00 Pure hypercholesterolemia, unspecified; I10 Essential (primary) hypertension; Z79.01 Long term (current) use of anticoagulants; Z79.899 Other long term (current) drug therapy; Z98.49 Cataract extraction status, unspecified eye; Z90.710 Acquired absence of both cervix and uterus; Z98.890 Other specified postprocedural states
CPT/HCPCS: 71046; 97110-GP; 97161-GP; 97530-GP; A9270-GY

== ENCOUNTER 2024-02-15 09:06 | Emergency (ER) | payer MEDICARE, OTHER ==
[2024-02-15] MEDS: Aspirin 81 MG Tab.Chew PO ONE (09:11)
[2024-02-15 09:23] LABS: BASOPHILS ABSOLUTE AUTO 0.03 10^3/uL (0.00-0.50); BASOPHILS PERCENT AUTO 0.6 % (0-1); EOSINOPHILS ABSOLUTE AUTO 0.07 10^3/uL (0.00-1.50); EOSINOPHILS PERCENT AUTO 1.3 % (0-6); HEMATOCRIT 39.6 % (37.0-47.0); HEMOGLOBIN 13.2 g/dL (12.0-16.0); LYMPHOCYTES ABSOLUTE AUTO 1.69 10^3/uL (0.60-5.00); LYMPHOCYTES PERCENT AUTO 31.1 % (24-44); MEAN CORPUSCULAR HEMOGLOBIN 31.1 pg (27.0-32.0); MEAN CORPUSCULAR HGB CONC 33.3 g/dL (32.0-36.0); MEAN CORPUSCULAR VOLUME 93.4 fL (83.0-97.0); MONOCYTES ABSOLUTE AUTO 0.55 10^3/uL (0.00-1.50); MONOCYTES PERCENT AUTO 10.1 % (0-10); NEUTROPHILS PERCENT AUTO 56.9 % (41-71); PLATELET COUNT,PLT 181 10^3/uL (150-400); RED BLOOD CELL COUNT 4.24 x10^6/uL (4.00-5.50); WHITE BLOOD CELL COUNT,WBC 5.4 10^3/uL (4.0-11.0)
[2024-02-15 09:47] LABS: ALBUMIN 3.6 g/dL (3.4-5.0); C-REACTIVE PROTEIN 0.64 mg/dL (<=0.50); CALCIUM 9.3 mg/dL (8.4-10.1); CREATININE 0.9 mg/dL (0.6-1.0); EST CRCL DRUG DOSING (CG) 33.52 mL/min; MAGNESIUM 2.1 mg/dL (1.8-2.4); POTASSIUM,K 4.4 mEq/L (3.5-5.0)
[2024-02-15 12:47] VITALS: BP 112/78; PULSE 50
== END 2024-02-15 13:12 | disposition home or self-care (01) ==
LOC: CC.ED 09:06
DX: R07.2 Precordial pain (principal); I48.91 Unspecified atrial fibrillation; I10 Essential (primary) hypertension; Z90.710 Acquired absence of both cervix and uterus; Z79.01 Long term (current) use of anticoagulants; Z79.899 Other long term (current) drug therapy
CPT/HCPCS: 36415; 71045; 80053; 83735; 83880; 84484; 85025; 85379; 86140; 87428-QW; 93005; 93010; 99284; 99285; A9270-GY